=== PATIENT | female | born 1995 ===

== ENCOUNTER 2025-09-11 14:57 | Inpatient (IN) | payer OTHER, SELFPAY ==
[2025-09-11] MEDS ORDERED: Calcium Gluc 4.6 MEQ/10 ML (100 MG/ML) SLOW IVP PRN (15:00)
[2025-09-11] MEDS ORDERED: hydrALAZINE 20 MG/ML VIAL SLOW IVP PRN ×2 (15:00)
[2025-09-11] MEDS ORDERED: Diphenoxylate HCl/Atropine Tablet PO PRN ×2 (15:07)
[2025-09-11] MEDS ORDERED: Tranexamic Acid 1,000 MG/10 ML VIAL IVP PRN (15:07)
[2025-09-11] MEDS ORDERED: Ondansetron PF 4 MG/2 ML Vial IVP PRN (15:07)
[2025-09-11] MEDS ORDERED: Carboprost 250 MCG/ML AMP IM PRN (15:07)
[2025-09-11] MEDS ORDERED: Oxytocin 30 units/NS 500 ML 500 ML IV SCH (15:15)
[2025-09-11 16:26] LABS: Hematocrit 28.4 % (34.9-44.5); Hemoglobin 9.4 g/dL (12.0-15.5); Mean Corpuscular Hemoglobin 23.9 pg (27.0-33.0); Mean Corpuscular Volume 72.3 fL (81.6-98.3); Platelet Count 308 10x3/uL (150-450); Red Blood Cell (RBC) Count 3.93 10x6/uL (3.90-5.03); White Blood Cell (WBC) Count 14.28 10x3/uL (3.5-10.5)
[2025-09-11 16:50] LABS: ALT (SGPT) 50 U/L (Less than 34); AST (SGOT) 59 U/L (11-34); Albumin 3.2 g/dL (3.1-4.5); Alkaline Phosphatase 95 U/L (40-110); Anion Gap 15 mmol/L (10-20); BUN (Urea Nitrogen) 8 mg/dL (7.0-18.7); Bilirubin, Total 0.2 mg/dL (0.3-1.2); Calc. Creatinine Clearance 0 mL/min (70-130); Calcium 9.9 mg/dL (7.8-10.44); Carbon Dioxide 18 mmol/L (22-29); Chloride 107 mmol/L (98-107); Globulin 4.7 g/dL (2.4-3.5); Glucose 88 mg/dL (70-105); Potassium 4.2 mmol/L (3.5-5.1); Sodium 136 mmol/L (136-145)
[2025-09-11 17:01] VITALS: BMI 66.4
[2025-09-11 17:14] LABS: MDiff Complete? YES; Microcytosis SLIGHT = 6-15 cells (100X) (0-5/hpf); Platelet Adequacy Comment Appears Adequate
[2025-09-11 18:05] LABS: Protein, Urine Random Quant Less than 10 mg/dL (1-14)
[2025-09-11] MEDS: Acetaminophen 500 MG TAB PO PRN (18:12)
[2025-09-11 18:21] LABS: Hep B Surf Ag - L&D Non-Reactive S/CO (NonReactive)
[2025-09-11 18:22] LABS: Syphilis Antibody Index 0.05 S/CO (<1.00 Non-Reactive)
[2025-09-11] MEDS: NIFEdipine XL 30 MG ER.TAB PO SCH (21:13)
[2025-09-11] MEDS: diphenhydrAMINE 50 MG/ML VIAL IVP PRN (21:19)
[2025-09-11] MEDS: Metoclopramide HCl 10 MG (2 mL) VIAL IVP PRN (21:20)
[2025-09-11 22:42] LABS: HBSAB Concentration Less than 8.00 mIU/mL
[2025-09-12] MEDS: Magnesium Sulfate 20 gm/500 ml 20 GM/500 ML BAG IVPB SCH (00:05)
[2025-09-12] MEDS: Acetaminophen 500 MG TAB PO PRN (05:50)
[2025-09-12 06:23] LABS: Anion Gap 17 mmol/L (10-20); BUN (Urea Nitrogen) 6 mg/dL (7.0-18.7); Calc. Creatinine Clearance 299 mL/min (70-130); Carbon Dioxide 17 mmol/L (22-29); Chloride 105 mmol/L (98-107); Potassium 4.9 mmol/L (3.5-5.1); Sodium 134 mmol/L (136-145)
[2025-09-12 06:24] LABS: ALT (SGPT) 55 U/L (Less than 34); AST (SGOT) 67 U/L (11-34); Albumin 3.2 g/dL (3.1-4.5); Alkaline Phosphatase 91 U/L (40-110); Bilirubin, Total 0.3 mg/dL (0.3-1.2); Calcium 9.3 mg/dL (7.8-10.44); Globulin 4.9 g/dL (2.4-3.5); Glucose 143 mg/dL (70-105)
[2025-09-12 06:28] LABS: #Basophils Less than 0.03 10x3/uL (0.0-0.2); #Eosinophils Less than 0.03 10x3/uL (0.0-0.5); #Monocytes 0.57 10x3/uL (0.0-1.1); #Neutrophils 16.17 10x3/uL (1.5-8.4); %Basophils 0.1 % (0.0-2.0); %Eosinophils 0.0 % (0.0-6.0); %Lymphocytes 8.0 % (18.0-47.0); %Monocytes 3.1 % (0.0-10.0); %Neutrophils 87.3 % (40.0-75.0); Hematocrit 28.0 % (34.9-44.5); Hemoglobin 9.4 g/dL (12.0-15.5); Mean Corpuscular Hemoglobin 24.4 pg (27.0-33.0); Mean Corpuscular Volume 72.5 fL (81.6-98.3); Platelet Count 345 10x3/uL (150-450); Red Blood Cell (RBC) Count 3.86 10x6/uL (3.90-5.03); White Blood Cell (WBC) Count 18.52 10x3/uL (3.5-10.5)
[2025-09-12 06:42] LABS: MDiff Complete? YES; Microcytosis SLIGHT = 6-15 cells (100X) (0-5/hpf)
[2025-09-12] MEDS ORDERED: NIFEdipine XL 30 MG ER.TAB PO SCH (09:00)
[2025-09-12] MEDS: NIFEdipine XL 30 MG ER.TAB PO SCH (09:16)
[2025-09-12] MEDS: hydrALAZINE 20 MG/ML VIAL ONE (14:43)
[2025-09-12] MEDS: Magnesium Sulfate 20 gm/500 ml 20 GM/500 ML BAG ONE (14:43)
[2025-09-12] MEDS: diphenhydrAMINE 50 MG/ML VIAL IVP SCH (14:45)
[2025-09-12] MEDS: Metoclopramide HCl 10 MG (2 mL) VIAL IVP SCH (14:45)
[2025-09-12] MEDS: NIFEdipine XL 60 MG ER.TAB PO SCH (17:19)
[2025-09-12] MEDS ORDERED: Glucagon 1 MG/ML KIT IM PRN (20:44)
[2025-09-12] MEDS ORDERED: Dextrose 50% Abboject 50 ML SYRINGE SLOW IVP PRN (20:44)
[2025-09-12] MEDS ORDERED: metFORMIN 500 MG TAB PO SCH (22:06)
[2025-09-12] MEDS: metFORMIN 500 MG TAB PO SCH (22:29)
[2025-09-13] MEDS ORDERED: metFORMIN 500 MG TAB PO SCH (08:00)
[2025-09-13] MEDS: metFORMIN 500 MG TAB PO SCH (08:04)
[2025-09-13 08:33] LABS: #Basophils Less than 0.03 10x3/uL (0.0-0.2); #Eosinophils Less than 0.03 10x3/uL (0.0-0.5); #Monocytes 0.90 10x3/uL (0.0-1.1); #Neutrophils 16.43 10x3/uL (1.5-8.4); %Basophils 0.1 % (0.0-2.0); %Eosinophils 0.0 % (0.0-6.0); %Lymphocytes 7.2 % (18.0-47.0); %Monocytes 4.8 % (0.0-10.0); %Neutrophils 86.9 % (40.0-75.0); Hematocrit 29.1 % (34.9-44.5); Hemoglobin 9.3 g/dL (12.0-15.5); Mean Corpuscular Hemoglobin 23.5 pg (27.0-33.0); Mean Corpuscular Volume 73.7 fL (81.6-98.3); Platelet Count 356 10x3/uL (150-450); Red Blood Cell (RBC) Count 3.95 10x6/uL (3.90-5.03); White Blood Cell (WBC) Count 18.89 10x3/uL (3.5-10.5)
[2025-09-13 08:49] LABS: Anion Gap 15 mmol/L (10-20); BUN (Urea Nitrogen) 12 mg/dL (7.0-18.7); Bilirubin, Total 0.2 mg/dL (0.3-1.2); Calc. Creatinine Clearance 274 mL/min (70-130); Calcium 9.0 mg/dL (7.8-10.44); Carbon Dioxide 19 mmol/L (22-29); Chloride 106 mmol/L (98-107); Glucose 121 mg/dL (70-105); Potassium 5.1 mmol/L (3.5-5.1); Sodium 135 mmol/L (136-145)
[2025-09-13 08:50] LABS: ALT (SGPT) 87 U/L (Less than 34); AST (SGOT) 100 U/L (11-34); Albumin 3.3 g/dL (3.1-4.5); Alkaline Phosphatase 90 U/L (40-110); Globulin 4.2 g/dL (2.4-3.5)
[2025-09-14 05:33] LABS: ALT (SGPT) 90 U/L (Less than 34); AST (SGOT) 100 U/L (11-34); Albumin 3.0 g/dL (3.1-4.5); Alkaline Phosphatase 85 U/L (40-110); Anion Gap 15 mmol/L (10-20); BUN (Urea Nitrogen) 16 mg/dL (7.0-18.7); Bilirubin, Total 0.2 mg/dL (0.3-1.2); Calc. Creatinine Clearance 250 mL/min (70-130); Calcium 9.3 mg/dL (7.8-10.44); Carbon Dioxide 21 mmol/L (22-29); Chloride 103 mmol/L (98-107); Globulin 4.7 g/dL (2.4-3.5); Glucose 135 mg/dL (70-105); Potassium 4.7 mmol/L (3.5-5.1); Sodium 134 mmol/L (136-145)
[2025-09-14] MEDS: Lantus 1000 UNITS/10 ML VIAL SC SCH (10:48)
[2025-09-14 11:20] LABS: INR-International Normal Ratio 1.0; PTT 25.0 sec (22.0-33.0); Prothrombin Time 10.5 sec (9.5-12.1)
[2025-09-15 08:12] VITALS: BP 135/77; TEMP 98
[2025-09-15] MEDS: Lantus 1000 UNITS/10 ML VIAL SC SCH (09:10)
[2025-09-15 12:57] LABS: Group B Streptococcus by PCR DETECTED (NotDetected)
[2025-09-16 12:07] LABS: EliA APS New Method **** NEW METHOD ****; beta-2-Glycoprotein I IgA Ab 1.3 U/mL (<7 Negative); beta-2-Glycoprotein I IgG Ab 1.3 U/mL (<7 Negative); beta-2-Glycoprotein I IgM Abs 6.9 U/mL (<7 Negative)
== END 2025-09-15 11:25 | disposition left against medical advice (07) | DRG 833 ==
LOC: CSHLD/OP 14:57 → INTOOBSV 17:23 → CSHLD 17:23 → CSHANTE 09-12 16:45 → OBSVTOIN 09-12 17:05
PROVIDERS: ADMIT Family Medicine; ATTEND Family Medicine
DX: O14.13 Severe pre-eclampsia, third trimester (principal); O16.3 Unspecified maternal hypertension, third trimester; O99.213 Obesity complicating pregnancy, third trimester; O24.419 Gestational diabetes mellitus in pregnancy, unspecified control; O99.013 Anemia complicating pregnancy, third trimester; Z98.891 History of uterine scar from previous surgery; Z3A.29 29 weeks gestation of pregnancy
CPT/HCPCS: 36415; 36416; 76819; 80053; 82570; 82728; 83036; 84156; 85025; 85598; 85610; 85613; 85730; 86146; 86147; 86706; 86762; 86780; 86850; 86900; 86901; 87340; 87653; J0360; J0702; J1200; J1815; J2765; J3475